=== PATIENT | male | born 1965 | race Caucasian/White ===

== ENCOUNTER 2019-10-18 17:59 | Emergency (ER) | payer OTHER ==
[~2019-10-18] VITALS: Ht 175.3 cm; Wt 83.0 kg
[2019-10-18] MEDS ORDERED: ZOLOFT25 MG PO (18:27)
[2019-10-18] MEDS ORDERED: FLOMAX0.4 MG PO (18:27)
[2019-10-18] MEDS ORDERED: NORCO 5-325 TA1 EAC1 PO (19:47)
[2019-10-18 20:25] VITALS: BP 121/82
== END 2019-10-18 20:27 | disposition home or self-care (01) ==
LOC: ER 17:59
DX: S52.124A Nondisplaced fracture of head of right radius, initial encounter for closed fracture (principal); S62.014A Nondisplaced fracture of distal pole of navicular [scaphoid] bone of right wrist, initial encounter for closed fracture; S80.02XA Contusion of left knee, initial encounter; S40.812A Abrasion of left upper arm, initial encounter; S50.312A Abrasion of left elbow, initial encounter; S00.81XA Abrasion of other part of head, initial encounter; S50.811A Abrasion of right forearm, initial encounter; Z79.899 Other long term (current) drug therapy; V29.9XXA Motorcycle rider (driver) (passenger) injured in unspecified traffic accident, initial encounter; Y93.55 Activity, bike riding; Y92.89 Other specified places as the place of occurrence of the external cause; Y99.8 Other external cause status